=== PATIENT | female | born 1945 | race Caucasian/White ===

== ENCOUNTER 2016-08-16 07:45 | Outpatient (CLI) | payer MEDICARE, BC ==
--- NOTE | 2016-08-16 15:16 | MRI ---
MRI OF THE LEFT KNEE WITHOUT CONTRAST: Date: 08/16/16 INDICATION: Acute left knee pain. FINDINGS: There is full thickness radial tear involving the central posterior horn of the medial meniscus with partial medial extrusion. There is a horizontal tear involving the body and posterior horn of the m edial meniscus. The lateral meniscus is intact. There is some intrasubstance degenerative signal see n within the body of the lateral meniscus. There is mild to moderate osteoarthrosis of the left knee, predominantly affecting patellofemoral an d medial femorotibial joint compartments. There is some mild enthesopathic change seen near the semi membranosus insertion. The ACL, PCL, MCL, and LCLC are intact. The extensor mechanism is intact. IT band and popliteus appear within normal limits. IMPRESSION: 1. Mild to moderate osteoarthrosis of the left knee. 2. Medial meniscal tear. POS: [facility]
== END 2016-08-16 07:46 | disposition home or self-care (01) ==
LOC: BURMRI 07:45
PROVIDERS: ATTEND Family Medicine
DX: M25.562 Pain in left knee (principal); M17.12 Unilateral primary osteoarthritis, left knee

== ENCOUNTER 2017-01-07 16:10 | Outpatient (CLI) | payer MEDICARE, BC ==
--- NOTE | 2017-01-07 18:36 | RAD ---
RIGHT KNEE FOUR VIEWS 01/07/17 Four views show no fracture, dislocation, or large joint effusion. There are the beginnings of a few small osteophytes but the degree of arthritic change is quite minimal. The joint space is fairly no rmal in width for age. The articular surface seems smooth. IMPRESSION: Extremely minor osteophyte formation. POS: [facility]
== END 2017-01-07 16:11 | disposition home or self-care (01) ==
LOC: BURRAD 16:10
PROVIDERS: ATTEND Family Medicine
DX: M25.561 Pain in right knee (principal); M25.761 Osteophyte, right knee

== ENCOUNTER 2022-01-22 09:19 | Emergency (ER) | payer MEDICARE, BC ==
[2022-01-22] MEDS ORDERED: Nitroglycerin 0.4 MG TAB 1 EACH ONE (09:41)
[2022-01-22] MEDS ORDERED: Aspirin Chewable 81 MG TAB ONE (09:41)
[2022-01-22 09:46] LABS: #Basophils 0.2 thou/uL (0.0-0.2); #Eosinphils 0.2 thou/uL (0.0-0.7); #Lymphocytes 1.3 thou/uL (1.20-3.40); #Monocytes 0.6 thou/uL (0.11-0.59); #Neutrophils 5.6 thou/uL (1.40-6.50); %Basophils 1.9 % (0.0-1.0); %Eosinophils 2.9 % (0.0-10.0); %Lymphocytes 16.8 % (21.0-51.0); %Monocytes 7.1 % (0.0-10.0); %Neutrophils 71.3 % (42.0-75.0); Hemoglobin 14.5 g/dL (12.0-16.0); Mean Corpuscular HGB CONC 34.1 g/dL (32.0-36.0); Mean Corpuscular Hemoglobin 30.2 pg (27.0-31.0); Mean Corpuscular Volume 88.6 fL (78.0-98.0); Mean Platelet Volume 7.2 fL (7.4-10.4); Platelet Count 218 thou/uL (130-400); RBC Distribution Width 12.1 % (11.5-14.5); Red Blood Cell (RBC) Count 4.81 mill/uL (4.20-5.40); White Blood Cell (WBC) Count 7.9 thou/uL (4.8-10.8)
[2022-01-22 10:02] LABS: ALT (SGPT) 25 U/L (8-55); Albumin 4.3 g/dL (3.4-4.8); Alkaline Phosphatase 76 U/L (40-110); Anion Gap 18 mmol/L (10-20); BUN (Urea Nitrogen) 14 mg/dL (9.8-20.1); Bilirubin, Total 0.7 mg/dL (0.2-1.2); Calc. Creatinine Clearance 0 mL/min (70-130); Calcium 9.1 mg/dL (7.8-10.44); Carbon Dioxide 25 mmol/L (23-31); Chloride 103 mmol/L (98-107); Estimated GFR 68; Glucose 97 mg/dL (83-110); Potassium 4.5 mmol/L (3.5-5.1); Protein, Total 7.3 g/dL (5.8-8.1); Sodium 141 mmol/L (136-145)
[2022-01-22 10:15] LABS: AST (SGOT) 41 U/L (5-34)
== END 2022-01-22 12:41 | disposition short-term general hospital (02) ==
LOC: BURERS 09:19
DX: R07.89 Other chest pain (principal); Z79.899 Other long term (current) drug therapy; Z79.82 Long term (current) use of aspirin
CPT/HCPCS: 36415; 71045; 80053; 83880; 84484; 85025; 93005; 94760

== ENCOUNTER 2022-08-12 09:59 | Emergency (ER) | payer MEDICARE, BC | END 2022-08-12 10:45 | disposition home or self-care (01) | LOC: BURERS 09:59 | DX: U07.1 COVID-19 (principal); I10 Essential (primary) hypertension | CPT/HCPCS: 99283 ==